=== PATIENT | male | born 1990 | race Two or more races ===

== ENCOUNTER 2016-07-19 18:10 | Emergency (ER) | payer OTHER ==
[2016-07-19 19:02] VITALS: BP 145/81
--- NOTE | 2016-07-19 19:47 | UC ---
Dental HPI - HPI Summary HPI Summary: Pain in tooth that had filling many years ago, now has large hole in it. Denies injury, pain is gradual in onset. Swelling in cheek "a couple days ago," now pain is becoming unbearable. Health insurance recently reinstated, does not currently have dentist. - History of Current Complaint Chief Complaint: UCDentalProblem Stated Complaint: TOOTH ACHE Time Seen by Provider: 07/19/16 19:29 Hx Obtained From: Patient Onset/Duration: Gradual Onset, Lasting Days Severity: Moderate Aggravating: Chewing Alleviating: OTC Meds - no longer helping - Allergies/Home Medications Allergies/Adverse Reactions: Allergies Allergy/AdvReac Type Severity Reaction Status Date / Time No Known Allergies Allergy Verified 07/19/16 19:02 Home Medications: Home Medications Ibuprofen TAB* [Advil TAB*] 800 mg PO PRN 07/19/16 [History] Otc Allergy* 07/19/16 [History] PMH/Surg Hx/FS Hx/Imm Hx Endocrine History Of: Denies: Diabetes, Thyroid Disease Cardiovascular History Of: Denies: Cardiac Disorders, Hypertension Respiratory History Of: Denies: COPD, Asthma GI/ History Of: Denies: Ulcer - Surgical History Surgical History: None - Family History Known Family History: Positive: None - Social History Alcohol Use: None Substance Use Type: None Smoking Status (MU): Former Smoker Amount Used/How Often: 1pk/wk Review of Systems Constitutional: Negative Skin: Negative Eyes: Negative ENT: Dental Pain Respiratory: Negative Cardiovascular: Negative Gastrointestinal: Negative Genitourinary: Negative Motor: Negative Neurovascular: Negative Musculoskeletal: Negative Neurological: Negative Psychological: Negative All Other Systems Reviewed And Are Negative: Yes Physical Exam Triage Information Reviewed: Yes Appearance: Well-Appearing, No Pain Distress, Well-Nourished Vital Signs: Initial Vital Signs Temp 97.9 F 07/19/16 18:59 Pulse 69 07/19/16 18:59 Resp 16 07/19/16 18:59 BP 145/81 07/19/16 18:59 Pulse Ox 99 07/19/16 18:59 Vital Signs Reviewed: Yes Eye Exam: Normal Eyes: Positive: Conjunctiva Clear ENT: Positive: Normal ENT inspection, Hearing grossly normal, Pharynx normal, TMs normal. Negative: Tonsillar swelling, Tonsillar exudate Dental: Positive: Percussion Tenderness @ - #19, Gross Decay/Caries @ - open area on #19 with old filling present Respiratory Exam: Normal Respiratory: Positive: Chest non-tender, Lungs clear, Normal breath sounds, No respiratory distress, No accessory muscle use Cardiovascular Exam: Normal Cardiovascular: Positive: RRR, No Murmur Musculoskeletal Exam: Normal Neurological Exam: Normal Psychological Exam: Normal Skin Exam: Normal Dental Complaint Course/Dx - Course Course Of Treatment: Pt was provided with list of dentists that accept total care. - Differential Dx/Diagnosis Provider Diagnoses: Toothache #19 Discharge - Discharge Plan Condition: Stable Disposition: HOME Prescriptions: HYDROcodone/ACETAMIN 5-325 MG* [[place] 5-325 TAB*] 1 - 2 tab PO BEDTIME PRN #5 tab MDD 2 PRN Reason: Pain Ketorolac TAB (NF) [Toradol TAB (NF)] 10 mg PO TID #15 tab Penicillin VK TAB 500 MG(NF) [Penicillin VK 500 mg Tab(NF)] 500 mg PO QID #40 tab Patient Education Materials: Toothache (ED) Referrals: No Primary Care Phys,NOPCP [Primary Care Provider] - Additional Instructions: Please follow up with a dentist as soon as possible.
== END 2016-07-19 19:47 | disposition home or self-care (01) ==
LOC: UCEAST 18:10
DX: K08.89 Other specified disorders of teeth and supporting structures (principal); R03.0 Elevated blood-pressure reading, without diagnosis of hypertension; Z87.891 Personal history of nicotine dependence
CPT/HCPCS: 99212; G0463

== ENCOUNTER 2016-09-09 16:59 | Emergency (ER) | payer OTHER ==
[2016-09-09 17:22] VITALS: BP 127/66
--- NOTE | 2016-09-09 18:36 | UC ---
Throat Pain/Nasal Morgan HPI - HPI Summary HPI Summary: ST, nasal congestion, occ cough starting 4 days ago. Has school-aged kids who live with him. Lots of difficulty swallowing. Denies fever or trouble breathing. - History of Current Complaint Chief Complaint: UCRespiratory Stated Complaint: SORE THROAT Time Seen by Provider: 09/09/16 18:25 Hx Obtained From: Patient Onset/Duration: Gradual Onset, Lasting Days Severity: Moderate Cough: Nonproductive Associated Signs & Symptoms: Positive: Nasal Discharge - Allergies/Home Medications Allergies/Adverse Reactions: Allergies Allergy/AdvReac Type Severity Reaction Status Date / Time No Known Allergies Allergy Verified 09/09/16 17:15 PMH/Surg Hx/FS Hx/Imm Hx Endocrine History Of: Denies: Diabetes, Thyroid Disease Cardiovascular History Of: Denies: Cardiac Disorders, Hypertension Respiratory History Of: Denies: COPD, Asthma GI/ History Of: Denies: Ulcer - Surgical History Surgical History: None - Family History Known Family History: Positive: None - Social History Occupation: Retired Lives: Alone Alcohol Use: None Substance Use Type: None Smoking Status (MU): Former Smoker Amount Used/How Often: 1pk/wk When Did the Patient Quit Smoking/Using Tobacco: 3 years ago - Immunization History Most Recent Influenza Vaccination: none Review of Systems Constitutional: Negative Skin: Negative Eyes: Negative ENT: Sore Throat, Nasal Discharge Respiratory: Cough Cardiovascular: Negative Gastrointestinal: Negative Genitourinary: Negative Motor: Negative Neurovascular: Negative Musculoskeletal: Negative Neurological: Negative Psychological: Negative All Other Systems Reviewed And Are Negative: Yes Physical Exam Triage Information Reviewed: Yes Appearance: Well-Appearing, Well-Nourished, Pain Distress - mild Vital Signs: Initial Vital Signs Temp 98.3 F 09/09/16 17:17 Pulse 72 09/09/16 17:17 Resp 16 09/09/16 17:17 BP 127/66 09/09/16 17:17 Pulse Ox 99 09/09/16 17:17 Vital Signs Reviewed: Yes Eye Exam: Normal Eyes: Positive: Conjunctiva Clear ENT: Positive: Hearing grossly normal, Nasal congestion, TMs normal, Tonsillar swelling Dental Exam: Normal Neck exam: Normal Neck: Positive: Supple, Nontender, No Lymphadenopathy Respiratory Exam: Normal Respiratory: Positive: Chest non-tender, Lungs clear, Normal breath sounds, No respiratory distress, No accessory muscle use Cardiovascular Exam: Normal Cardiovascular: Positive: RRR, No Murmur Musculoskeletal Exam: Normal Neurological Exam: Normal Neurological: Positive: Alert Psychological Exam: Normal Skin Exam: Normal Throat Pain/Nasal Course/Dx - Differential Dx/Diagnosis Provider Diagnoses: URI. pharyngitis. elevated blood pressure due to discomfort Discharge - Discharge Plan Condition: Stable Disposition: HOME
[2016-09-09] MEDS ORDERED: Ibuprofen TAB* 600 MG PO ONE (18:46)
== END 2016-09-09 19:05 | disposition home or self-care (01) ==
LOC: UCEAST 16:59
DX: J06.9 Acute upper respiratory infection, unspecified (principal); R03.0 Elevated blood-pressure reading, without diagnosis of hypertension
CPT/HCPCS: 87651; 99211; A9270-GY; G0463

== ENCOUNTER 2016-09-10 15:34 | Emergency (ER) | payer OTHER ==
[2016-09-10 15:43] VITALS: BP 134/70
[2016-09-10] MEDS ORDERED: HYDROcodone/ACETAMIN 5-325 MG* 1 TAB PO ONE (16:31)
--- NOTE | 2016-09-10 16:42 | ED ---
Shanna Gudino Claudia, scribed for Ronnie Posey MD on 09/10/16 at 1631 . Throat Pain/Nasal Congestion - HPI Summary HPI Summary: 25 year old male presents to the ED with dental pain. Pt notes pain gradual onset a few days ago and has been constant since. Pt also notes sore throat, ear ache. He went to [facility] a few days ago for sore throat and was negative for strep. He notes that he has a dentist whom saw him last week and has a referral out to his insurance to do work his tooth in the near future. Pt notes aggravating Sx of PO intake. Pt denies abd pain, NVD, fever chills and any alleviating factors. - History of Current Complaint Chief Complaint: EDDentalPain Time Seen by Provider: 09/10/16 16:12 Hx Obtained From: Patient Onset/Duration: Gradual Onset, Lasting Days, Still Present - Allergies/Home Medications Allergies/Adverse Reactions: Allergies Allergy/AdvReac Type Severity Reaction Status Date / Time No Known Allergies Allergy Verified 09/09/16 17:15 PMH/Surg Hx/FS Hx/Imm Hx Previously Healthy: Yes Endocrine/Hematology History: Denies: Hx Diabetes, Hx Thyroid Disease Cardiovascular History: Denies: Hx Hypertension Respiratory History: Denies: Hx Asthma, Hx Chronic Obstructive Pulmonary Disease (COPD) GI History: Denies: Hx Ulcer Infectious Disease History: No Infectious Disease History: Denies: Hx Clostridium Difficile, Hx Hepatitis, Hx Human Immunodeficiency Virus (HIV), Hx of Known/Suspected MRSA, Hx Shingles, Hx Tuberculosis, Traveled Outside the [place] in Last 30 Days - Family History Known Family History: Negative: Cardiac Disease, Hypertension, Diabetes - Social History Occupation: Employed Full-time Lives: Alone Alcohol Use: None Substance Use Type: Reports: None Smoking Status (MU): Former Smoker Amount Used/How Often: 1pk/wk Review of Systems Constitutional: Negative Negative: Fever, Chills Eyes: Negative Positive: Dental Pain, Sore Throat, Ear Ache Cardiovascular: Negative Respiratory: Negative Gastrointestinal: Negative Negative: Abdominal Pain, Vomiting, Diarrhea, Nausea Genitourinary: Negative Musculoskeletal: Negative Skin: Negative Neurological: Negative Psychological: Normal All Other Systems Reviewed And Are Negative: Yes Physical Exam Triage Information Reviewed: Yes Vital Signs On Initial Exam: Initial Vitals Temp Pulse Resp BP Pulse Ox 98.1 F 63 20 134/70 100 09/10/16 15:41 09/10/16 15:41 09/10/16 15:41 09/10/16 15:41 09/10/16 15:41 Vital Signs Reviewed: Yes Appearance: Positive: Well-Appearing. Negative: No Pain Distress - mild pain distress Skin: Positive: Warm, Skin Color Reflects Adequate Perfusion, Dry Head/Face: Positive: Normal Head/Face Inspection Eyes: Positive: EOMI, BRIAN ENT: Positive: Normal ENT inspection Dental: Positive: Other - Left lower dental pain. Gingival swelling. Pharyngeal erythema with tonsils erythematous with NO exudate. Neck: Positive: Supple, Nontender Respiratory/Lung Sounds: Positive: Clear to Auscultation, Breath Sounds Present Cardiovascular: Positive: RRR Abdomen Description: Positive: Nontender, Soft Musculoskeletal: Positive: Normal, Strength/ROM Intact Neurological: Positive: Normal, Sensory/Motor Intact, Alert, Oriented to Person Place, Time Psychiatric: Positive: Affect/Mood Appropriate Diagnostics - Vital Signs Vital Signs Temp Pulse Resp BP Pulse Ox 09/10/16 16:16 98.1 F 63 20 134/70 100 09/10/16 15:41 98.1 F 63 20 134/70 100 - Laboratory Lab Statement: Any lab studies that have been ordered have been reviewed, and results considered in the medical decision making process. EENT Course/Dx - Course Course Of Treatment: NO CRITICAL CARE TIME Assessment/Plan: WELL IN ED. DISCHARGE HOME STABLE. - Diagnoses Provider Diagnoses: Dental infection, Pharyngitis Discharge - Discharge Plan Condition: Stable Disposition: HOME Prescriptions: HYDROcodone/ACETAMIN 5-325 MG* [[place] 5-325 TAB*] 1 tab PO Q4H PRN #15 tab MDD 6 PRN Reason: Pain Penicillin VK TAB 500 MG(NF) [Penicillin VK 500 mg Tab(NF)] 500 mg PO QID #40 tab Patient Education Materials: Toothache (ED), Pharyngitis (ED) Referrals: No Primary Care Phys,NOPCP [Primary Care Provider] - Additional Instructions: FOLLOW UP WITH YOUR DENTIST. RETURN TO THE EMERGENCY DEPARTMENT FOR ANY WORSENING OF YOUR CONDITION OR QUESTIONS OR CONCERNS. The documentation as recorded by the Shanna rocha Claudia accurately reflects the service I personally performed and the decisions made by , Ronnie Posey MD.
== END 2016-09-10 17:00 | disposition home or self-care (01) ==
LOC: ED 15:34
DX: K04.7 Periapical abscess without sinus (principal); J02.9 Acute pharyngitis, unspecified; Z87.891 Personal history of nicotine dependence
CPT/HCPCS: 99281

== ENCOUNTER 2017-10-17 21:16 | Emergency (ER) | payer OTHER ==
[2017-10-17 22:04] VITALS: BP 129/76
[2017-10-17] MEDS ORDERED: Benzocaine/Butamben/Tetracain* SPRAY TOPICAL ONE (22:33)
[2017-10-17] MEDS ORDERED: Pseudoephedrine TAB* 60 MG PO ONE (22:34)
--- NOTE | 2017-10-17 22:41 | UC ---
Throat Pain/Nasal Morgan HPI - HPI Summary HPI Summary: 27 yo WM c/o sore throat x 2 days associated with nasal congestion - History of Current Complaint Chief Complaint: UCRespiratory Stated Complaint: SORE THROAT Time Seen by Provider: 10/17/17 21:44 Hx Obtained From: Patient Onset/Duration: Sudden Onset, Lasting Days Severity: Moderate Pain Intensity: 10 Cough: Nonproductive - Allergies/Home Medications Allergies/Adverse Reactions: Allergies Allergy/AdvReac Type Severity Reaction Status Date / Time No Known Allergies Allergy Verified 10/17/17 22:04 Home Medications: Home Medications Ibuprofen TAB* [Advil TAB*] 6 tab PO ONCE PRN 10/17/17 [History Confirmed ] Loratadine [Claritin] 10 mg PO DAILY 10/17/17 [History Confirmed 10/17/17] PMH/Surg Hx/FS Hx/Imm Hx - Additional Past Medical History Additional PMH: none Previously Healthy: Yes - Surgical History Surgical History: None - Family History Known Family History: Positive: None Negative: Cardiac Disease, Hypertension, Diabetes - Social History Alcohol Use: None Substance Use Type: None Smoking Status (MU): Former Smoker Amount Used/How Often: 1pk/wk When Did the Patient Quit Smoking/Using Tobacco: 3 years ago - Immunization History Most Recent Influenza Vaccination: none Review of Systems Constitutional: Negative Skin: Negative Eyes: Negative ENT: Sore Throat, Ear Ache, Nasal Discharge, Sinus Congestion Respiratory: Negative Cardiovascular: Negative Gastrointestinal: Negative Genitourinary: Negative Motor: Negative Neurovascular: Negative Musculoskeletal: Negative Neurological: Negative Psychological: Negative All Other Systems Reviewed And Are Negative: Yes Physical Exam Triage Information Reviewed: Yes Appearance: Well-Appearing Vital Signs: Initial Vital Signs Temp 36.4 C 10/17/17 22:01 Pulse 77 10/17/17 22:01 Resp 16 10/17/17 22:01 BP 129/76 10/17/17 22:01 Pulse Ox 100 10/17/17 22:01 Eye Exam: Normal ENT: Positive: Pharyngeal erythema, Nasal congestion, Nasal drainage, TMs normal. Negative: Tonsillar swelling, Tonsillar exudate Dental Exam: Normal Neck exam: Normal Neck: Positive: Supple, Tenderness @ - mild cervical LAD Respiratory Exam: Normal Cardiovascular Exam: Normal Abdominal Exam: Normal Musculoskeletal Exam: Normal Neurological Exam: Normal Psychological Exam: Normal Skin Exam: Normal Throat Pain/Nasal Course/Dx - Differential Dx/Diagnosis Provider Diagnoses: pharyngitis. URI Discharge - Sign-Out/Discharge Documenting (check all that apply): Discharge/Admit/Transfer - Discharge Plan Condition: Stable Disposition: HOME Prescriptions: Pseudoephedrine HCL ER TAB* [Sudafed 12 Hour*] 120 mg PO BID 10 Days #20 tab.er Patient Education Materials: Pharyngitis (ED), Upper Respiratory Infection (ED) - Billing Disposition and Condition Condition: STABLE Disposition: HOME
== END 2017-10-17 22:59 | disposition home or self-care (01) ==
LOC: UCEAST 21:16
DX: J06.9 Acute upper respiratory infection, unspecified (principal); J02.9 Acute pharyngitis, unspecified; Z87.891 Personal history of nicotine dependence
CPT/HCPCS: 87651; 99212; A9270-GY; G0463

== ENCOUNTER 2018-01-03 20:19 | Emergency (ER) | payer OTHER ==
[2018-01-03 20:27] VITALS: BP 136/88
--- NOTE | 2018-01-03 20:31 | UC ---
Dental HPI - HPI Summary HPI Summary: 27 yo male presents with left lower tooth pain and gum swelling for the last 2 weeks - getting worse over the last 2-3 days. He tells me that he knows he has a broken tooth here and has scheduled an appt to see a dentist for next week, but they recommended he be placed on antibiotics before his appt. He is taking ibuprofen for pain with good relief. He is able to eat and drink without difficulty. He also is requesting a finger stick for blood sugar as both of his parents are diabetic. He reports that over the last 2 months he has felt more fatigued and has been waking up in the middle of the night to urinate more frequently than in the past. Denies fever, chills, SOB, chest pain, abdominal pain, n/v/d/c, dysuria, hematuria. - History of Current Complaint Chief Complaint: UCDentalProblem Stated Complaint: TOOTHACHE Time Seen by Provider: 01/03/18 20:30 Hx Obtained From: Patient Onset/Duration: Gradual Onset Severity: Moderate Pain Intensity: 6 Pain Scale Used: 0-10 Numeric - Allergies/Home Medications Allergies/Adverse Reactions: Allergies Allergy/AdvReac Type Severity Reaction Status Date / Time No Known Allergies Allergy Verified 01/03/18 20:27 PMH/Surg Hx/FS Hx/Imm Hx - Additional Past Medical History Additional PMH: None Previously Healthy: Yes - Surgical History Surgical History: None - Family History Known Family History: Positive: Diabetes Negative: Cardiac Disease, Hypertension - Social History Occupation: Employed Full-time Lives: With Family Alcohol Use: None Substance Use Type: None Smoking Status (MU): Former Smoker Amount Used/How Often: 1pk/wk When Did the Patient Quit Smoking/Using Tobacco: 3 years ago - Immunization History Most Recent Influenza Vaccination: none Review of Systems Constitutional: Negative Skin: Negative Eyes: Negative ENT: Dental Pain Respiratory: Negative Cardiovascular: Negative Gastrointestinal: Negative Genitourinary: Other - Nocturia Motor: Negative Neurovascular: Negative Neurological: Negative Psychological: Negative All Other Systems Reviewed And Are Negative: Yes Physical Exam - Summary Physical Exam Summary: GENERAL: NAD. WDWN. No pain distress. SKIN: No rashes, sores, lesions, or open wounds. NECK: Supple. Nontender. No lymphadenopathy. CHEST: CTAB. No r/r/w. No accessory muscle use. Breathing comfortably and in no distress. CV: RRR. Without m/r/g. Pulses intact. Brisk cap refill. ABDOMEN: Soft. NTTP. No distention or guarding. Bowel sounds present NEURO: Alert. CN II-XII grossly intact. PSYCH: Age appropriate behavior. Triage Information Reviewed: Yes Vital Signs: Initial Vital Signs Temp 98.8 F 01/03/18 20:25 Pulse 61 01/03/18 20:25 Resp 18 01/03/18 20:25 BP 136/88 01/03/18 20:25 Pulse Ox 100 01/03/18 20:25 Laboratory Tests 01/03/18 20:42 POC Glucose (mg/dL) 102 H Vital Signs Reviewed: Yes Dental: Positive: Percussion Tenderness @ - tooth 19, Gross Decay/Caries @ - Throughout, Dental Fracture @ - tooth 19, Abscess @ - tooth 19. Negative: Cellulitis @, Cervical Lymphadenopathy, Bleeding Dental Complaint Course/Dx - Course Course Of Treatment: POC glucose 102. Dental abscess tooth 19. Rx for amoxicillin. Advised to keep f/u with dentist. Advised to make appt with his PCP for further possible diabetes investigation. - Differential Dx/Diagnosis Provider Diagnoses: Dental abscess tooth 19. Fam hx of diabetes Discharge - Sign-Out/Discharge Documenting (check all that apply): Patient Departure - Discharge Plan Condition: Stable Disposition: HOME Prescriptions: Amoxicillin PO (*) [Amoxicillin 500 MG CAP*] 500 mg PO Q12H #14 cap Patient Education Materials: Dental Abscess (ED) Referrals: No Primary Care Phys,NOPCP [Primary Care Provider] - Additional Instructions: If you develop a fever, shortness of breath, chest pain, new or worsening symptoms - please call your PCP or go to the ED. 1) Keep your schedule appointment next week with your dentist 2) Please call your PCP to schedule an appt as soon as possible to review your lab results that were drawn today Per institutional requirements, I have reviewed the chart, however, I was not consulted specifically or made aware of this patient by the above midlevel provider. I did not personally evaluate, interact with , or disposition this patient. - Billing Disposition and Condition Condition: STABLE Disposition: Home
[2018-01-03] MEDS ORDERED: Amoxicillin PO (*) 500 MG CAP PO ONE (20:38)
== END 2018-01-03 21:00 | disposition home or self-care (01) ==
LOC: UCEAST 20:19
DX: K04.7 Periapical abscess without sinus (principal); K02.9 Dental caries, unspecified; R35.1 Nocturia; R53.83 Other fatigue; Z83.3 Family history of diabetes mellitus
CPT/HCPCS: 99212; A9270-GY; G0463

== ENCOUNTER 2018-05-31 16:07 | Emergency (ER) | payer OTHER ==
--- NOTE | 2018-05-31 19:02 | ED ---
GI/ HPI - HPI Summary HPI Summary: 27 male presents with intermittent left inguinal pain for the past couple weeks. He states started after his weight lifting. He states is worsening when he weight lifts. He denies any nausea vomiting. No diarrhea or constipation. No fevers. He denies any testicular pain. Pain does not radiate anywhere. States it is a pressure type feeling. has never had this pain before. No previous belly surgeries. No medical conditions. denies any urinary symptoms. - History of Current Complaint Chief Complaint: EDAbdPain Time Seen by Provider: 05/31/18 18:41 Stated Complaint: ABD PAIN Pain Intensity: 7 - Allergy/Home Medications Allergies/Adverse Reactions: Allergies Allergy/AdvReac Type Severity Reaction Status Date / Time No Known Allergies Allergy Verified 05/31/18 16:12 PMH/Surg Hx/FS Hx/Imm Hx Endocrine/Hematology History: Denies: Hx Diabetes, Hx Thyroid Disease Cardiovascular History: Denies: Hx Hypertension Respiratory History: Reports: Hx Seasonal Allergies - mild, occasionally gets sx Denies: Hx Asthma, Hx Chronic Obstructive Pulmonary Disease (COPD) GI History: Denies: Hx Ulcer Infectious Disease History: No Infectious Disease History: Denies: Hx Clostridium Difficile, Hx Hepatitis, Hx Human Immunodeficiency Virus (HIV), Hx of Known/Suspected MRSA, Hx Shingles, Hx Tuberculosis, Traveled Outside the [place] in Last 30 Days - Family History Known Family History: Positive: None, Diabetes Negative: Cardiac Disease, Hypertension - Social History Alcohol Use: None Hx Substance Use: No Substance Use Type: Reports: None Hx Tobacco Use: Yes Smoking Status (MU): Former Smoker Amount Used/How Often: 1pk/wk Review of Systems Negative: Fever Negative: Chest Pain Negative: Shortness Of Breath Positive: Abdominal Pain. Negative: Vomiting, Diarrhea, Nausea All Other Systems Reviewed And Are Negative: Yes Physical Exam Triage Information Reviewed: Yes Vital Signs On Initial Exam: Initial Vitals Temp Pulse Resp BP Pulse Ox 98.2 F 88 16 149/86 99 05/31/18 16:08 05/31/18 16:08 05/31/18 16:08 05/31/18 16:08 05/31/18 16:08 Vital Signs Reviewed: Yes Appearance: Positive: Well-Appearing Skin: Positive: Warm, Dry Head/Face: Positive: Normal Head/Face Inspection Eyes: Positive: Normal, Conjunctiva Clear ENT: Positive: Pharynx normal Respiratory/Lung Sounds: Positive: Clear to Auscultation, Breath Sounds Present Cardiovascular: Positive: Normal, RRR Abdomen Description: Positive: Nontender, Soft, Hernia @ - left inguinal, Other : - no erythema to the area Bowel Sounds: Positive: Present Musculoskeletal: Positive: Normal Neurological: Positive: Normal Psychiatric: Positive: Normal Diagnostics - Vital Signs Vital Signs Temp Pulse Resp BP Pulse Ox 05/31/18 16:08 98.2 F 88 16 149/86 99 - Laboratory Lab Statement: Any lab studies that have been ordered have been reviewed, and results considered in the medical decision making process. GIGU Course/Dx - Course Course Of Treatment: 27 male presents with intermittent left inguinal pain for the past couple weeks. He states started after his weight lifting. He states is worsening when he weight lifts. He denies any nausea vomiting. No diarrhea or constipation. No fevers. He denies any testicular pain. Pain does not radiate anywhere. States it is a pressure type feeling. has never had this pain before. No previous belly surgeries. No medical conditions. On exam tenderness over left inguinal area. Inguinal hernia felt. no evidence of incarceration. Told to avoid weight lifting. Gave referral surgery. Patient understands agrees the plan. - Diagnoses Differential Diagnoses - Male: Incarcerated Hernia, Urinary Tract Infection, Other - hernia Provider Diagnoses: Inguinal hernia Discharge - Sign-Out/Discharge Documenting (check all that apply): Patient Departure - Discharge Plan Condition: Good Disposition: HOME Prescriptions: Ibuprofen TAB* [Motrin TAB* 600 MG] 600 mg PO Q6H PRN #20 tab PRN Reason: Pain Patient Education Materials: Inguinal Hernia (ED) Referrals: Colin Rouse MD [Medical Doctor] - Additional Instructions: avoid lifting heavy objects can place ice on the area Take tyenlol or ibuprofen every 6 hours for pain Return to ED if develop any new or worsening symptoms - Billing Disposition and Condition Condition: GOOD Disposition: Home
[2018-05-31 19:14] VITALS: BP 127/66
== END 2018-05-31 19:13 | disposition home or self-care (01) ==
LOC: ED 16:07
DX: K40.90 Unilateral inguinal hernia, without obstruction or gangrene, not specified as recurrent (principal); Z87.891 Personal history of nicotine dependence
CPT/HCPCS: 99282

== ENCOUNTER 2019-01-23 18:53 | Emergency (ER) | payer SELFPAY ==
[2019-01-23 19:07] VITALS: BP 150/96
[2019-01-23] MEDS ORDERED: Amoxicillin PO (*) 500 MG CAP PO ONE (19:33)
--- NOTE | 2019-01-23 19:34 | UC ---
Dental HPI - HPI Summary HPI Summary: 28-year-old male comes in with a chief complaint of left lower posterior tooth pain and gingival swelling. Reports he's had a long time problem with dental infections. The most recent symptoms started several days ago the getting worse. He did get some pus out of the area yesterday. No fevers or chills feels well otherwise. - History of Current Complaint Chief Complaint: UCDentalProblem Stated Complaint: DENTAL PAIN Time Seen by Provider: 01/23/19 19:26 Pain Intensity: 5 - Allergies/Home Medications Allergies/Adverse Reactions: Allergies Allergy/AdvReac Type Severity Reaction Status Date / Time No Known Allergies Allergy Verified 01/23/19 19:07 PMH/Surg Hx/FS Hx/Imm Hx Previously Healthy: Yes - Surgical History Surgical History: None - Family History Known Family History: Positive: None, Diabetes Negative: Cardiac Disease, Hypertension - Social History Alcohol Use: None Substance Use Type: None Smoking Status (MU): Former Smoker Amount Used/How Often: 1pk/wk When Did the Patient Quit Smoking/Using Tobacco: 3 years ago - Immunization History Most Recent Influenza Vaccination: none Review of Systems All Other Systems Reviewed And Are Negative: Yes Constitutional: Positive: Negative Skin: Positive: Negative Eyes: Positive: Negative ENT: Positive: Dental Pain Respiratory: Positive: Negative Cardiovascular: Positive: Negative Gastrointestinal: Positive: Negative Motor: Positive: Negative Neurovascular: Positive: Negative Musculoskeletal: Positive: Negative Neurological: Positive: Negative Psychological: Positive: Negative Is Patient Immunocompromised?: No Physical Exam Triage Information Reviewed: Yes Appearance: Well-Appearing, No Pain Distress, Well-Nourished Vital Signs: Initial Vital Signs Temp 99.1 F 01/23/19 19:02 Pulse 80 01/23/19 19:02 Resp 20 01/23/19 19:02 BP 150/96 01/23/19 19:02 Pulse Ox 98 01/23/19 19:02 Vital Signs Reviewed: Yes Eye Exam: Normal Eyes: Positive: Conjunctiva Clear ENT: Positive: Pharynx normal Dental: Positive: Other: - Left rear molar has caries and has gingival swelling that extends into the left cheek. Neck: Positive: Supple Respiratory: Positive: No respiratory distress Musculoskeletal: Positive: Strength Intact, ROM Intact Neurological: Positive: Alert Psychological: Positive: Age Appropriate Behavior Skin Exam: Normal Dental Complaint Course/Dx - Differential Dx/Diagnosis Provider Diagnosis: Dental abscess Discharge ED - Sign-Out/Discharge Documenting (check all that apply): Patient Departure All imaging exams completed and their final reports reviewed: No Studies - Discharge Plan Condition: Stable Disposition: HOME Prescriptions: Amoxicillin PO (*) [Amoxicillin 500 MG CAP*] 500 mg PO TID #28 cap Patient Education Materials: Dental Abscess (ED) Referrals: Cassi Chance MD [Primary Care Provider] - Additional Instructions: FOLLOW UP WITH YOUR DENTIST. GET RECHECKED SOONER IF YOUR CONDITION WORSENS OR ANY QUESTIONS OR CONCERNS. - Billing Disposition and Condition Condition: STABLE Disposition: Home
== END 2019-01-23 19:40 | disposition home or self-care (01) ==
LOC: UCEAST 18:53
DX: K04.7 Periapical abscess without sinus (principal); Z87.891 Personal history of nicotine dependence
CPT/HCPCS: 99212; A9270-GY; G0463

== ENCOUNTER 2019-06-21 18:34 | Emergency (ER) | payer OTHER ==
[2019-06-21 18:49] VITALS: BP 132/80
--- NOTE | 2019-06-21 19:26 | UC ---
Dental HPI - HPI Summary HPI Summary: 28-year-old male comes in with chief complaint of dental pain. His left lower molar tooth pain with gingival swelling. It's been going on for some time. Is been taken ibuprofen and Tylenol which only helped a little bit with the pain. He was able get all of his dentist and he has an appointment in 2 weeks. No fevers or chills. Does hurt more to chew. - History of Current Complaint Chief Complaint: UCDentalProblem Stated Complaint: TOOTHACHE Time Seen by Provider: 06/21/19 19:21 Pain Intensity: 10 - Allergies/Home Medications Allergies/Adverse Reactions: Allergies Allergy/AdvReac Type Severity Reaction Status Date / Time environmental Allergy Congestion Uncoded 06/21/19 18:49 Home Medications: Home Medications Ibuprofen TAB* [Motrin TAB* 600 MG] 800 mg PO Q6H PRN 06/21/19 [History Confirmed 06/21/19] Loratadine/Pseudoephedrine [Claritin-D 12 Hour Tablet] 1 tab PO DAILY 06/21/19 [ History Confirmed 06/21/19] PMH/Surg Hx/FS Hx/Imm Hx Previously Healthy: Yes - Surgical History Surgical History: None - Family History Known Family History: Positive: None, Diabetes Negative: Cardiac Disease, Hypertension - Social History Alcohol Use: None Substance Use Type: None Smoking Status (MU): Former Smoker Amount Used/How Often: 1pk/wk When Did the Patient Quit Smoking/Using Tobacco: 3 years ago - Immunization History Most Recent Influenza Vaccination: none Review of Systems All Other Systems Reviewed And Are Negative: Yes Constitutional: Positive: Negative Skin: Positive: Negative Eyes: Positive: Negative ENT: Positive: Dental Pain Respiratory: Positive: Negative Cardiovascular: Positive: Negative Gastrointestinal: Positive: Negative Motor: Positive: Negative Neurovascular: Positive: Negative Musculoskeletal: Positive: Negative Neurological: Positive: Negative Psychological: Positive: Negative Is Patient Immunocompromised?: No Physical Exam Triage Information Reviewed: Yes Appearance: Well-Appearing, Well-Nourished, Pain Distress - MILD Vital Signs: Initial Vital Signs Temp 98.5 F 06/21/19 18:45 Pulse 71 06/21/19 18:45 Resp 18 06/21/19 18:45 BP 132/80 06/21/19 18:45 Pulse Ox 99 06/21/19 18:45 Vital Signs Reviewed: Yes Eye Exam: Normal Eyes: Positive: Conjunctiva Clear ENT: Positive: Pharynx normal, Uvula midline Dental: Positive: Gross Decay/Caries @ - Left lower molar caries with gingival swelling. Neck: Positive: Supple Respiratory: Positive: No respiratory distress Musculoskeletal: Positive: Strength Intact, ROM Intact Neurological: Positive: Alert, Muscle Tone Normal Psychological: Positive: Age Appropriate Behavior Skin Exam: Normal Dental Complaint Course/Dx - Differential Dx/Diagnosis Provider Diagnosis: Dental abscess Discharge ED - Sign-Out/Discharge Documenting (check all that apply): Patient Departure All imaging exams completed and their final reports reviewed: No Studies - Discharge Plan Condition: Stable Disposition: HOME Prescriptions: Amoxicillin PO (*) [Amoxicillin 500 MG CAP*] 500 mg PO TID #30 cap Patient Education Materials: Dental Abscess (ED) Referrals: Priyanka Garcia NP [Primary Care Provider] - Additional Instructions: FOLLOW UP WITH YOUR DENTIST SCHEDULED IN 2 WEEKS. GET REEVALUATED SOONER IF NOT IMPROVED OR WORSE OR ANY QUESTIONS OR CONCERNS. - Billing Disposition and Condition Condition: STABLE Disposition: Home
== END 2019-06-21 19:30 | disposition home or self-care (01) ==
LOC: UCEAST 18:34
DX: K04.7 Periapical abscess without sinus (principal); Z87.891 Personal history of nicotine dependence; Z91.09 Other allergy status, other than to drugs and biological substances
CPT/HCPCS: 99212; G0463